=== PATIENT | male | born 1940 | race Caucasian/White ===

== ENCOUNTER 2023-02-06 23:37 | Emergency (ER) | payer OTHER ==
[~2023-02-06] VITALS: Ht 182.9 cm; Wt 81.2 kg
[2023-02-07 04:53] VITALS: BP 122/62
[2023-02-07 05:50] LABS: BASOPHILS ABSOLUTE AUTO 0.04 K/mm3 (0.00-0.23); BASOPHILS PERCENT AUTO 0 % (0-2); EOSINOPHILS ABSOLUTE AUTO 0.06 K/mm3 (0.00-0.68); EOSINOPHILS PERCENT AUTO 1 % (0-6); Hematocrit 38.1 % (37.0-53.0); Hemoglobin 12.4 g/dL (13.5-17.5); IMMATURE GRAN ABSOLUTE AUTO 0.01 K/mm3 (0.00-0.10); IMMATURE GRAN PERCENT AUTO 0 % (0-1); LYMPHOCYTES ABSOLUTE AUTO 1.33 K/mm3 (0.84-5.20); LYMPHOCYTES PERCENT AUTO 14 % (21-46); MONOCYTES ABSOLUTE AUTO 1.59 K/mm3 (0.16-1.47); MONOCYTES PERCENT AUTO 17 % (4-13); Mean Corpuscular HGB 29.3 pg (26.0-34.0); Mean Corpuscular HGB Conc 32.5 g/dL (31.5-36.5); Mean Corpuscular Volume 90 fL (80-100); Mean Platelet Volume 9.6 fL (9.1-12.4); NEUTROPHILS ABSOLUTE AUTO 6.32 K/mm3 (1.96-9.15); NEUTROPHILS PERCENT AUTO 68 % (41-73); Platelet Count 192 K/mm3 (150-400); RDW Coefficient Variation 15.7 % (11.7-14.2); RDW Standard Deviation 52.2 fL (35.1-46.3); Red Blood Cell Count 4.23 M/mm3 (4.30-5.90); White Blood Cell Count 9.35 K/mm3 (4.00-11.30)
[2023-02-07 06:18] LABS: Albumin, Blood 3.3 g/dL (3.4-5.0); Bilirubin, Total 0.5 mg/dL (0.1-1.0); Bun/Creatinine Ratio 9.9 (12.0-20.0); Calcium, Blood 8.4 mg/dL (8.5-10.1); Creatinine, Blood 0.91 mg/dL (0.60-1.20); Globulin, Blood 3.3 g/dL (2.2-4.0); Potassium, Blood 4.1 mmol/L (3.5-5.5); Total Protein, Blood 6.6 g/dL (6.4-8.2)
== END 2023-02-07 07:23 | disposition home or self-care (01) ==
LOC: ER 23:37
PROVIDERS: Student in an Organized Health Care Education/Training Program
DX: K59.00 Constipation, unspecified (principal); R09.81 Nasal congestion
CPT/HCPCS: 80053; 85025; 93005; 93010; 96374; 99284-25; A9270; J1885

== ENCOUNTER 2024-06-06 08:44 | Day surgery (SDC) | payer OTHER ==
[~2024-06-06] VITALS: Ht 180.3 cm; Wt 78.3 kg
[2024-06-06] VITALS (15 sets, daily range): BP systolic 108–137; BP diastolic 52–93
[~2024-06-06 08:44] MED LIST: ALEVAZOL56.7 G1 TOP; Acetaminophen 500 MG Tab PO SCH; Analpram-HC 2.530 GM TOP; CEPACOL THROAT1 EAC1 MM; CeFAZolin Sodium 2,000 MG in NS 100 ML IV SCH; Chlorhexidine Mouth Care 15 ML UDC MT SCH; Flonase 0.05% N16 GM; LIDEX TOP; Lactated Ringer's 1,000 ML IV SCH; METO50ER PO; PRED1 PO; Prinivil10 MG PO; Tranexamic Acid 1,000 MG in NS 100 ML IV SCH; XARELTO20 MG PO
[2024-06-06] MEDS ORDERED: Ropivacaine 0.5% HCl/Pf 123.125 MG,EPINEPHrine HCL 0.25 MG,Clonidine HCl/Pf 40 MCG in N... INFIL SCH (09:20)
[2024-06-06] MEDS ORDERED: OxyCODONE HCL 10 MG TABCR PO SCH (09:20)
[2024-06-06] MEDS ORDERED: MUPIROCIN1 G2 TOP (09:22)
[2024-06-06] MEDS ORDERED: Dexamethasone Sod Phos 10 MG/ML 1ML VIAL ONE (09:56)
[2024-06-06] MEDS ORDERED: Ondansetron HCl 2 MG / ML 2ML Vial ONE (09:56)
[2024-06-06] MEDS ORDERED: Bupivacaine 0.5% HCl 5 MG/ML 30MLVIAL ONE (09:56)
[2024-06-06] MEDS ORDERED: Ketorolac Tromethamine 30mg Vial ONE (09:56)
--- NOTE | 2024-06-06 10:04 | NUR ---
DIFFICULT IV START, MULTIPLE RN ATTEMPT.
[2024-06-06] MEDS ORDERED: propofoL 20 ML IV ONE ×2 (10:05→12:48)
--- NOTE | 2024-06-06 11:00 | NUR ---
Ambulatory in Day Surgery. History, Chart, Medications and Allergies reviewed before start of procedure. PT REPORTS HE IS OKAY TO TAKE OXYCONTIN. CLARIFIED WITH DR HAZEL OKPRIYANK TO GIVE. Lungs clear T/O to Auscultation. Patient confirms NPO status and agrees with scheduled surgery. Pre-Op teaching done. Pt verbalizes understanding. PT BELONGINGS PLACED UNDERNEATH GURNEY FOR SAFEKEEPING. PT GLASSES TAKEN TO PACU. PER ANESTHESIA OKAY TO LEAVE DENTURES IN PLACE.
[2024-06-06] MEDS ORDERED: ePHEDrine Sulfate 50 MG/ML 1ML Injection ONE (12:09)
[2024-06-06] MEDS ORDERED: Hydrocortisone Sod Succinate 100 MG Vial ONE (12:40)
[2024-06-06] MEDS ORDERED: DiphenhydrAMINE HCL 25 MG Cap PO PRN (13:40)
[2024-06-06] MEDS ORDERED: FLU VACC TS2024-25(6MOS UP)/PF 45 MCG/0.5 ML SYRINGE IM SCH (13:45)
[2024-06-06] MEDS ORDERED: HYDROmorphone HCl/Pf 1MG SYR IV PRN (13:45)
[2024-06-06] MEDS ORDERED: Promethazine HCl 25 MG Tab PO PRN (13:45)
[2024-06-06] MEDS ORDERED: Metoclopramide HCl 5MG / ML 2ML Vial IV PRN (13:45)
[2024-06-06] MEDS ORDERED: Bisacodyl 10 MG Supp PR PRN (13:50)
[2024-06-06] MEDS ORDERED: Ondansetron HCl 2 MG / ML 2ML Vial IV PRN (13:50)
[2024-06-06] MEDS ORDERED: Lactated Ringer's 1,000 ML IV SCH (13:50)
[2024-06-06] MEDS ORDERED: Magnesium Hydroxide Conc 10 ML UDC PO PRN (13:50)
[2024-06-06] MEDS ORDERED: OxyCODONE HCL 5 MG TAB PO PRN ×2 (13:50)
[2024-06-06] MEDS ORDERED: Vancomycin HCL 1,000 MG in NS 250 ML IV SCH (14:00)
--- NOTE | 2024-06-06 14:05 | NUR ---
PT ARRIVED TO UNIT AT APROX 1400 FROM FROM OR. PS A/O X'S 4. LLE WITH PAS IN PLACE, NO DRAINAGE TO DRESSING UPON ARRIVAL TO UNIT. PT DENIES FEELING IN BLE,IS ABLE TO MOVE BLE SLIGHTLY, DENIES PAIN. LUNGS CLEAR, O2 SAT 100% ON RA.PT TOLERATING PO WITH NO N/V. PRIMARY RN TO ASSUME CARE AT THIS TIME
[2024-06-06] MEDS ORDERED: Acetaminophen 500 MG Tab PO SCH (16:00)
--- NOTE | 2024-06-06 17:58 | NUR ---
SHIFT SUMMARY PT POD1 FOR L TKA. PT REPORTS PAIN ADEQUATELY CONTROLLED. IV IN LFA SALINE LOCKED. PT HAS NOT VOIDED URINE YET OR HAD A BOWEL MOVEMENT. PT INSTRUCTED TO USE CALL LIGHT WHEN HE FEELS LIKE HE NEEDS TO USE RESTROOM. URINAL AT BEDSIDE, CALL LIGHT WITHIN REACH. PT ABLE TO WIGGLE TOES, BUT HAS NOT BEEN OUT OF BED YET. COOLING THERAPY ON L KNEE, AQUACEL DRESSING IN PLACE AND IS CDI.
[2024-06-06] MEDS ORDERED: CeFAZolin Sodium 2,000 MG in NS 100 ML IV SCH (20:00)
[2024-06-06] MEDS ORDERED: Docusate Sodium 100 MG Cap PO SCH (21:00)
[2024-06-07 04:18] VITALS: BP 113/63
--- NOTE | 2024-06-07 06:37 | NUR ---
SHIFT SUMMARY POD 1 L TKA. NO ACUTE CHANGES OVERNIGHT. VSS. TOLERATING ORALS. AQUACEL C/D/I. PT REPORTS PAIN TOLERABLE, POLAR PACK IN USE, MEDICATED PER EMAR. VOIDING. AMBULATES USING FWW c GB. ANTICIPATED TO WORK c PHYSCIAL THERAPY THEN DISCHARGE HOME LATER TODAY. PT DRESSED, CALL LIGHT IN REACH, WILL REPORT TO DAY RN.
[2024-06-07 06:39] LABS: BASOPHILS ABSOLUTE AUTO 0.03 K/mm3 (0.00-0.23); BASOPHILS PERCENT AUTO 0 % (0-2); EOSINOPHILS PERCENT AUTO 0 % (0-6); Hematocrit 37.4 % (37.0-53.0); Hemoglobin 12.4 g/dL (13.5-17.5); IMMATURE GRAN ABSOLUTE AUTO 0.05 K/mm3 (0.00-0.10); IMMATURE GRAN PERCENT AUTO 0 % (0-1); LYMPHOCYTES ABSOLUTE AUTO 1.01 K/mm3 (0.84-5.20); LYMPHOCYTES PERCENT AUTO 7 % (21-46); MONOCYTES PERCENT AUTO 8 % (4-13); Mean Corpuscular HGB 31.2 pg (26.0-34.0); Mean Corpuscular HGB Conc 33.2 g/dL (31.5-36.5); Mean Corpuscular Volume 94 fL (80-100); Mean Platelet Volume 9.9 fL (9.1-12.4); NEUTROPHILS ABSOLUTE AUTO 11.99 K/mm3 (1.96-9.15); NEUTROPHILS PERCENT AUTO 85 % (41-73); Platelet Count 228 K/mm3 (150-400); RDW Coefficient Variation 13.2 % (11.7-14.2); RDW Standard Deviation 45.1 fL (35.1-46.3); Red Blood Cell Count 3.98 M/mm3 (4.30-5.90); White Blood Cell Count 14.18 K/mm3 (4.00-11.30)
[2024-06-07 06:54] LABS: Bun/Creatinine Ratio 15.8 (12.0-20.0); Calcium, Blood 8.6 mg/dL (8.5-10.1); Creatinine, Blood 0.95 mg/dL (0.60-1.20); Magnesium, Blood 2.3 mg/dL (1.6-2.4); Potassium, Blood 4.6 mmol/L (3.5-5.5)
[2024-06-07 07:17] VITALS: BP 124/65
[2024-06-07] MEDS ORDERED: OXYC5 PO (07:32)
[2024-06-07] MEDS ORDERED: Rivaroxaban 10 MG Tab PO SCH (09:00)
[2024-06-07] MEDS ORDERED: Lisinopril 10 MG Tab PO SCH (09:00)
[2024-06-07] MEDS ORDERED: Metoprolol Succinate 50 MG TABCR PO SCH (09:00)
[2024-06-07] MEDS ORDERED: PredniSONE 5 MG Tab PO SCH (09:00)
--- NOTE | 2024-06-07 10:13 | NUR ---
PHONE CALL PLACED TO PT'S GIRLFRIEND, LUIS E PER PT REQUEST. LUIS E NOTIFIED THAT PT WILL BE DISCHARGING AND SHE STATED SHE WILL BE AT THE HOSPITAL SOON TO PICK PT UP.
--- NOTE | 2024-06-07 10:57 | NUR ---
DISCHARGE PT POD1 FROM L TKA. PHYSICAL THERAPY IN THIS MORNING AND CLEARED PT FOR D/C. PT ALERT, PAIN UNDER CONTROL, AND CONTINENT OF URINE. NO BM YET, REVIEWED BOWEL CARE W/ PT AND HE VERBALIZED UNDERSTANDING. REVIEWED ALL OTHER D/C INSTRUCTIONS. PT D/C W/ SIGNIFICANT OTHER, LUIS E.
== END 2024-06-07 10:52 | disposition home or self-care (01) ==
LOC: ORSCMMR 08:44 → ORD 10:30 → SURS 13:48 → ORSCMMR 06-07 10:52
PROVIDERS: Orthopaedic Surgery
PROC: 8E0Y0CZ Robotic Assisted Procedure of Lower Extremity, Open Approach (ICD-10-PCS; principal; 2024-06-06 10:30)
PROC: 0SRD0JA Replacement of Left Knee Joint with Synthetic Substitute, Uncemented, Open Approach (ICD-10-PCS; principal; 2024-06-06 10:30)
DX: M17.12 Unilateral primary osteoarthritis, left knee (principal); I10 Essential (primary) hypertension; Z79.899 Other long term (current) drug therapy
CPT/HCPCS: 36415; 73560-LT; 80048; 83735; 85025; 97110; 97116; 97162; A9270; C1713; C1776; J0171; J0690; J0735; J1100; J1720; J1885; J2405; J2704; J2795; J3370; J7050; J7120; J7512

== ENCOUNTER 2024-06-07 20:24 | Emergency (ER) | payer OTHER ==
[~2024-06-07] VITALS: Ht 180.3 cm; Wt 81.2 kg
[~2024-06-07 20:24] MED LIST changes: -Acetaminophen 500 MG Tab PO SCH; -CeFAZolin Sodium 2,000 MG in NS 100 ML IV SCH; -Chlorhexidine Mouth Care 15 ML UDC MT SCH; -Lactated Ringer's 1,000 ML IV SCH; +MUPIROCIN1 G2 TOP; +OXYC5 PO; -Tranexamic Acid 1,000 MG in NS 100 ML IV SCH
[2024-06-07 21:20] LABS: BASOPHILS ABSOLUTE AUTO 0.04 K/mm3 (0.00-0.23); BASOPHILS PERCENT AUTO 0 % (0-2); EOSINOPHILS ABSOLUTE AUTO 0.02 K/mm3 (0.00-0.68); EOSINOPHILS PERCENT AUTO 0 % (0-6); Hematocrit 38.4 % (37.0-53.0); IMMATURE GRAN ABSOLUTE AUTO 0.08 K/mm3 (0.00-0.10); IMMATURE GRAN PERCENT AUTO 1 % (0-1); LYMPHOCYTES ABSOLUTE AUTO 1.51 K/mm3 (0.84-5.20); LYMPHOCYTES PERCENT AUTO 9 % (21-46); MONOCYTES PERCENT AUTO 11 % (4-13); Mean Corpuscular HGB 31.4 pg (26.0-34.0); Mean Corpuscular HGB Conc 33.9 g/dL (31.5-36.5); Mean Corpuscular Volume 93 fL (80-100); Mean Platelet Volume 9.8 fL (9.1-12.4); NEUTROPHILS ABSOLUTE AUTO 12.91 K/mm3 (1.96-9.15); NEUTROPHILS PERCENT AUTO 79 % (41-73); Platelet Count 255 K/mm3 (150-400); RDW Coefficient Variation 13.6 % (11.7-14.2); RDW Standard Deviation 46.5 fL (35.1-46.3); Red Blood Cell Count 4.14 M/mm3 (4.30-5.90); White Blood Cell Count 16.36 K/mm3 (4.00-11.30)
[2024-06-07 21:47] LABS: Albumin, Blood 3.6 g/dL (3.4-5.0); Albumin/Globulin Ratio 1.1 (0.8-1.8); Bilirubin, Total 0.4 mg/dL (0.1-1.0); Bun/Creatinine Ratio 18.7 (12.0-20.0); Calcium, Blood 9.1 mg/dL (8.5-10.1); Creatinine, Blood 0.75 mg/dL (0.60-1.20); Globulin, Blood 3.4 g/dL (2.2-4.0); Potassium, Blood 4.2 mmol/L (3.5-5.5)
[2024-06-08 00:41] VITALS: BP 148/59
[2024-06-08] MEDS ORDERED: Morphine Sulfate 4 MG/1 ML Injection IV ONE (01:15)
== END 2024-06-08 02:21 | disposition home or self-care (01) ==
LOC: ER 20:24
PROVIDERS: Physician Assistant
DX: G89.18 Other acute postprocedural pain (principal); M25.562 Pain in left knee; Z96.652 Presence of left artificial knee joint; Z88.5 Allergy status to narcotic agent; Z88.0 Allergy status to penicillin; Z88.6 Allergy status to analgesic agent; Z79.899 Other long term (current) drug therapy; Z79.01 Long term (current) use of anticoagulants
CPT/HCPCS: 73562-LT; 80053; 85025; 85379; 93971; 96374; 99284-25; J2270